=== PATIENT | male | born 1950 | race Caucasian/White ===

== ENCOUNTER 2018-02-12 09:55 | Outpatient (CLI) | payer MEDICARE, MEDICAID ==
[~2018-02-12 09:55] MED LIST: ALBU18HF2 INH; CALC260T6 PO; DOCU250C4 PO; GABA-532 PO; INSU100V10 SQ; INSU100V5 IJ; LANTUS INSULIN SQ; LEVO100T PO; METF500T PO; METO-467 PO
== END 2018-02-12 23:59 | disposition home or self-care (01) ==
LOC: RAD 09:55
PROVIDERS: ATTEND Family Medicine
DX: G25.0 Essential tremor (principal); E11.9 Type 2 diabetes mellitus without complications; I10 Essential (primary) hypertension; J44.9 Chronic obstructive pulmonary disease, unspecified; F17.200 Nicotine dependence, unspecified, uncomplicated
CPT/HCPCS: 95816

== ENCOUNTER 2018-09-28 14:12 | Day surgery (SDC) | payer MEDICARE, MEDICAID ==
[~2018-09-28] VITALS: Ht 175.3 cm; Wt 75.0 kg
[2018-09-28 14:24] VITALS: BP 167/95
[2018-09-28] MEDS ORDERED: fentaNYL/PF 50MCG/1 ML 2ML syringe ONE (14:27)
[2018-09-28] MEDS ORDERED: LIDOcaine Viscous 15ml cup ONE (14:27)
[2018-09-28] MEDS ORDERED: MIDAZolam 5mg/5ml vial ONE (14:27)
[2018-09-28] MEDS ORDERED: INSU100C4 SQ (14:45)
[2018-09-28] MEDS ORDERED: GLIP2.5T3 PO (14:49)
[2018-09-28] MEDS ORDERED: ASPI-1265 PO (14:49)
[2018-09-28] MEDS ORDERED: LACT10SO PO (14:50)
[2018-09-28] MEDS ORDERED: TEMA7.5C PO (14:51)
[2018-09-28] MEDS ORDERED: LORA10TA61 PO (14:51)
[2018-09-28] MEDS ORDERED: BUSP15TA14 PO (14:52)
[2018-09-28] MEDS ORDERED: ZOLP10TA PO (14:53)
[2018-09-28] MEDS ORDERED: TRAZ150T78 PO (14:53)
[2018-09-28 14:54] VITALS: BP 141/85
[2018-09-28 15:04] VITALS: BP 163/90
[2018-09-28 15:14] VITALS: BP 163/90
[2018-09-28 15:24] VITALS: BP 160/92
== END 2018-09-28 15:26 | disposition home or self-care (01) ==
LOC: GI LAB 14:12
PROVIDERS: ATTEND Internal Medicine Gastroenterology
DX: I85.00 Esophageal varices without bleeding (principal); K76.6 Portal hypertension; K31.89 Other diseases of stomach and duodenum; I10 Essential (primary) hypertension; I42.8 Other cardiomyopathies; F17.210 Nicotine dependence, cigarettes, uncomplicated; J44.9 Chronic obstructive pulmonary disease, unspecified; G89.29 Other chronic pain; E11.9 Type 2 diabetes mellitus without complications; E89.0 Postprocedural hypothyroidism; F32.89 Other specified depressive episodes; F41.8 Other specified anxiety disorders; Z85.850 Personal history of malignant neoplasm of thyroid; Z79.891 Long term (current) use of opiate analgesic; Z79.4 Long term (current) use of insulin; Z79.84 Long term (current) use of oral hypoglycemic drugs; Z86.69 Personal history of other diseases of the nervous system and sense organs; Z79.82 Long term (current) use of aspirin; Z90.49 Acquired absence of other specified parts of digestive tract; Z86.19 Personal history of other infectious and parasitic diseases; Z98.890 Other specified postprocedural states; Z79.899 Other long term (current) drug therapy; Z84.89 Family history of other specified conditions
CPT/HCPCS: 43235; J2250; J3010; J7030; 99152; A4620

== ENCOUNTER 2020-03-07 20:19 | Emergency (ER) | payer MEDICARE, MEDICAID ==
[~2020-03-07] VITALS: Ht 175.3 cm; Wt 76.8 kg
[~2020-03-07 20:19] MED LIST changes: +ASPI-1265 PO; +BUSP15TA8 PO; +DOCU-329 PO; -DOCU250C4 PO; +GLIP2.5T3 PO; +INSU100C4 SQ; -INSU100V10 SQ; -INSU100V5 IJ; +LACT10SO PO; +LORA10TA61 PO; +TEMA7.5C PO; +TRAZ150T78 PO; +ZOLP10TA PO
[2020-03-07 20:24] VITALS: BP 128/66
[2020-03-07] MEDS ORDERED: ketorolac trometh. 30mg/ml inj. IM ONE (20:45)
== END 2020-03-07 20:55 | disposition home or self-care (01) ==
LOC: ER 20:19
DX: M25.511 Pain in right shoulder (principal); I10 Essential (primary) hypertension; J44.9 Chronic obstructive pulmonary disease, unspecified; E11.9 Type 2 diabetes mellitus without complications; F12.90 Cannabis use, unspecified, uncomplicated; G89.29 Other chronic pain; Z90.49 Acquired absence of other specified parts of digestive tract; Z72.89 Other problems related to lifestyle; Z79.82 Long term (current) use of aspirin; Z79.899 Other long term (current) drug therapy
CPT/HCPCS: 96372; 99283; J1885